=== PATIENT | male | born 1970 | race African-American/Black ===

== ENCOUNTER 2020-01-22 23:43 | Emergency (ER) | payer SELFPAY ==
[~2020-01-22] VITALS: Ht 170.2 cm; Wt 78.0 kg
[2020-01-22 23:47] VITALS: BP 140/80
[2020-01-23] MEDS ORDERED: KETOROLAC 30MG/ML VIAL IM ONE (00:15)
[2020-01-23] MEDS ORDERED: IBUPROFEN 600MG TABLET PO ONE (00:30)
== END 2020-01-23 00:41 | disposition home or self-care (01) ==
LOC: ER 23:43
DX: S16.1XXA Strain of muscle, fascia and tendon at neck level, initial encounter (principal); V49.9XXA Car occupant (driver) (passenger) injured in unspecified traffic accident, initial encounter; Y93.89 Activity, other specified; Y92.89 Other specified places as the place of occurrence of the external cause; Y99.8 Other external cause status
CPT/HCPCS: 99283; J1885